=== PATIENT | female | born 1970 | race Caucasian/White ===

== ENCOUNTER 2023-12-26 12:58 | Emergency (ER) | payer SELFPAY ==
[~2023-12-26] VITALS: Ht 160 cm; Wt 63.5 kg
[2023-12-26 13:00] VITALS: O2SAT 97
== END 2023-12-26 13:45 | disposition left against medical advice (07) ==
LOC: ER 13:02
DX: R42 Dizziness and giddiness (principal); T50.995A Adverse effect of other drugs, medicaments and biological substances, initial encounter; Y92.89 Other specified places as the place of occurrence of the external cause
CPT/HCPCS: 93005; A4606; A4663